=== PATIENT | female | born 1935 | race Caucasian/White ===

== ENCOUNTER → 2017-02-10 | Outpatient (CLI) | payer MEDICARE, BC | END | disposition home or self-care (01) | LOC: GMAJ 12:12 | PROVIDERS: ATTEND Family Medicine | DX: I10 Essential (primary) hypertension (principal) ==

== ENCOUNTER 2017-02-17 05:49 | Day surgery (SDC) | payer MEDICARE, BC ==
--- NOTE | 2017-02-12 09:02 | HP ---
CHIEF COMPLAINT: Right knee pain. HISTORY OF PRESENT ILLNESS: Ms. Kearney is an 81-year-old female with a history of pain in her right knee. She has had this going on for going on a year. Ms. Kearney had no trauma related to this, denies any radiation of pain and denies any neurologic symptoms. She does have history of arthritis and she will probably benefit in the long run from total knee arthroplasty. Her current social situation prevents her for undergoing such a procedure. Because of that, she has requested operative intervention, but wishes to undergo knee arthroscopy. After discussing the risks, benefits and alternatives to operative therapy, the patient has given informed consent for knee arthroscopy. PAST SURGICAL HISTORY: 1. Cardiac stent placement. 2. Cholecystectomy. MEDICATIONS: 1. Lisinopril. 2. Levothyroxine. 3. Atorvastatin. ALLERGIES: NO KNOWN DRUG ALLERGIES. CODE STATUS: DNR. IMMUNIZATIONS: Up to date. SOCIAL HISTORY: The patient does not drink, smoke or use any illicit drugs. FAMILY HISTORY: None pertinent to today's complaint. REVIEW OF SYSTEMS: Negative except as indicated in the History of Present Illness. PHYSICAL EXAMINATION: VITAL SIGNS: Blood pressure 155/124. Pulse 61. Height 5'5". Weight 127. MENTAL STATUS: The patient is awake, alert, and is able to give a good history and participate in the physical. The patient is oriented to person, place and time. SKIN: Normal tone and turgor. HEENT: Normocephalic, atraumatic. Pupils equal, round and reactive. Mucosal membranes are moist. NECK: Normal range of motion. No thyromegaly, no lymphadenopathy. CHEST: Normal respiratory excursion. CARDIAC: Regular rate and rhythm. No murmurs, rubs or gallops. MUSCULOSKELETAL: She is very tender to palpation along the medial aspect of the knee and has mild tenderness laterally. She has minimal tenderness with patellar mobilization. She has crepitus throughout her range of motion and has range of motion from full extension to about 130 degrees. She has no varus/ valgus or anterior/posterior laxity. Strength is 5/5 in the extremity. Sensation is intact. There is no effusion and there is no malalignment on gross clinical exam. ASSESSMENT: 1. Arthritis. PLAN: We have talked about the efficacy of knee arthroscopy with arthritis and although she may get some benefit, the effects might not be lasting. She understands that and she is willing to undergo procedure for any relief that she can get. We have discussed the risks, benefits, and alternatives to that and the patient has given informed consent. [facility][id number] [facility]
[2017-02-17] MEDS ORDERED: LACTATED RINGERS 1,000 ML ONE (05:58)
[2017-02-17] MEDS ORDERED: SODIUM CHL 0.9% 50ML MIN-BAG+ 50 ML IVPB ONE (05:58)
[2017-02-17] MEDS ORDERED: ceFAZolin SODIUM 1 GM VIAL ONE ×2 (05:59→06:39)
[2017-02-17] MEDS ORDERED: LIDOCAINE 1% W/ EPINEPHRINE 20 ML VIAL INJ ONE (06:39)
[2017-02-17] MEDS ORDERED: fentaNYL CITRATE INJ 50 MCG/ML AMP ONE (06:49)
--- NOTE | 2017-02-17 08:52 | OP ---
DATE OF PROCEDURE: 02/17/17 PREOPERATIVE DIAGNOSIS: 1. Right knee osteoarthritis. 2. Right knee meniscus tear. 3. Right knee pain. POSTOPERATIVE DIAGNOSIS: 1. Right knee osteoarthritis. 2. Right knee meniscus tear. 3. Right knee pain. 4. Loose body within the anterior compartment measuring approximately 5 mm. PROCEDURE: 1. Chondroplasty. 2. Partial meniscectomy. SURGEON: Christopher Reynolds MD. ENGINE TESTING SUPERVISOR: Luis Felipe Hui CST, SA-C. ANESTHESIA: General. COMPLICATIONS: None. FINDINGS: 1. Advanced arthrosis of the medial compartment. 2. Tearing of the medial meniscus. 3. Loose body within the anterior compartment measuring approximately 5 mm. 4. Normal anterior cruciate ligament and normal posterior cruciate ligament. 5. Grade 3 changes in the chondral surfaces of the lateral compartment. 6. Normal lateral gutter. 7. Normal suprapatellar pouch. 8. Grade 4 changes of the patellofemoral joint. 9. Normal medial gutter. INDICATION: Ms. Kearney is an 81-year-old female with a history of pain in the knee. She has had conservative measures and unfortunately failed to gain relief. She and I have talked about other options and she requested operative intervention. We talked about total knee arthroplasty versus surgical intervention using arthroscopy. She requested arthroscopy and we discussed the possible durability or lack thereof of the results and the variable results in the knee with arthritis. After discussing the risks, benefits and alternatives to that, the patient has given informed consent for that. PROCEDURE: The patient was brought to the Operating Room and placed in supine position. General anesthesia was induced and the patient's leg was sterilely prepped and draped. Following prepping and draping, standard anteromedial and anterolateral portals were established. Diagnostic arthroscopy was carried out with the above findings. After diagnostic arthroscopy was performed, a 3.5 mm full radius shaver was used to debride both the chondral surface at the femur and the meniscus. Following that, both were thoroughly probed to ensure complete stability of the remaining chondral surface and meniscal remnant. The knee was very thoroughly irrigated and the loose body in the anterior compartment was removed using a grasper. The knee was again thoroughly irrigated and drained. Following draining of the knee, the wounds were closed with Nylon suture. Sterile dressings were placed. The patient was awoken from anesthesia and taken to Recovery. POSTOPERATIVE INSTRUCTIONS: The patient will be partial weightbearing until followup with me in 2 days. We will discuss further intervention and need thereof should we not have durable results with her knee arthroscopy. #[id number] [facility]
[2017-02-17 09:48] VITALS: BP 118/82; TEMP 98.4; O2SAT 96
[2017-02-17] MEDS ORDERED: PROPOFOL 200 MG/20 ML VIAL IV ONE (12:00)
[2017-02-17] MEDS ORDERED: raNITIdine HCL INJ 25 MG/ML VIAL IV ONE (12:00)
[2017-02-17] MEDS ORDERED: LIDOCAINE 1% 10 ML VIAL INJ ONE (12:00)
[2017-02-17] MEDS ORDERED: DEXAMETHASONE INJ 10 MG/ML VIAL IV ONE (12:00)
[2017-02-17] MEDS ORDERED: GLYCOPYRROLATE 0.2 MG/ML VIAL IV ONE (12:00)
[2017-02-17] MEDS ORDERED: ePHEDrine SULF 50 MG/ML IV ONE (12:00)
== END 2017-02-17 09:30 | disposition home or self-care (01) ==
LOC: AMB 05:49
PROVIDERS: ATTEND Orthopaedic Surgery
DX: M17.11 Unilateral primary osteoarthritis, right knee (principal); S83.241A Other tear of medial meniscus, current injury, right knee, initial encounter; R00.1 Bradycardia, unspecified; I10 Essential (primary) hypertension; J44.9 Chronic obstructive pulmonary disease, unspecified; F17.200 Nicotine dependence, unspecified, uncomplicated; Z95.5 Presence of coronary angioplasty implant and graft; Z79.899 Other long term (current) drug therapy
CPT/HCPCS: 01400; 29881; 87070; J0690; J1100; J2780; J3010; J3490; J7050; J7120

== ENCOUNTER 2017-02-27 20:24 | Emergency (ER) | payer MEDICARE, BC ==
--- NOTE | 2017-02-27 20:53 | ED.PDOC ---
History of Present Illness - General Chief Complaint: Neck Injury/Pain Stated Complaint: Neck pain causing MCKEON and Bilateral shoulder pain Time Seen by Provider: 02/27/17 20:31 Source: patient, RN notes reviewed, Vital Signs reviewed Exam Limitations: no limitations - History of Present Illness Initial Comments: Earlier this afternoon patient developed neck pain that spread over her whole head and across her shoulders. She was not sure what was going on so she took some of her nitroglycerin which helped slightly. The pain continued through the evening and she got concerned so she came to the ER. No chest pain, SOB, nausea or diaphoresis. No numbness or tingling. Timing/Duration: 4-6 hours Severity: moderate Improving Factors: nothing Worsening Factors: movement Associated Symptoms: headaches Allergies/Adverse Reactions: Allergies NO KNOWN ALLERGY Allergy (Verified 02/27/17 20:57) Home Medications: Ambulatory Orders Aspirin [Aspirin 81] 81 mg PO DAILY 01/23/14 Levothyroxine Sodium [Tirosint] 50 mcg PO DAILY 01/23/14 Lisinopril 20 mg PO DAILY 01/23/14 Atorvastatin Calcium [Lipitor] 40 mg PO DAILY 02/12/17 HYDROcodone 5MG/APAP 325MG [[place] 5/325] 1 ea PO .Q4H PRN #30 tab 02/17/17 Cyclobenzaprine HCl [Flexeril] 5 mg PO Q8HRS PRN #12 tab 02/27/17 Review of Systems - Review of Systems Constitutional: States: no symptoms reported EENTM: States: no symptoms reported Respiratory: States: no symptoms reported. Denies: short of breath Cardiology: States: no symptoms reported. Denies: chest pain Gastrointestinal/Abdominal: States: no symptoms reported. Denies: nausea Musculoskeletal: States: see HPI, neck pain Skin: States: no symptoms reported Neurological: States: headache Endocrine: States: no symptoms reported Past Medical History (General) - Patient Medical History Hx Congestive Heart Failure: No Hx Diabetes: No Family Medical History - Family History Mother Family History: Unknown Physical Exam - Physical Exam General Appearance: Alert, Comfortable, No apparent distress, Well Developed, Well Groomed, Well Hydrated, Well Nourished Ears, Nose, Throat: hearing grossly normal Neck: full range of motion, supple, tender midline Respiratory: chest non-tender, lungs clear, normal breath sounds, no respiratory distress, no accessory muscle use Cardiovascular/Chest: normal peripheral pulses, regular rate, rhythm, no edema, no gallop, no JVD, no murmur Peripheral Pulses: radial,right: 2+, radial,left: 2+, dorsalis pedis,right: 2+, dorsalis pedis,left: 2+ Gastrointestinal/Abdominal: normal bowel sounds, non tender, soft, no organomegaly, no pulsatile mass Extremity: normal range of motion, normal inspection, other - Tenderness across posterior upper shoulder muscles. Neurologic: no motor/sensory deficits, alert, normal mood/affect, oriented x 3 Skin Exam: normal color, warm/dry Comments: Vital Signs - 24 hr 02/27/17 02/27/17 02/27/17 20:49 20:50 21:26 Temperature 97.8 F 97.8 F Pulse Rate 76 Pulse Rate [ 71 74 76 left] Respiratory 18 18 Rate Blood Pressure 151/74 95/67 [left] O2 Sat by Pulse 96 97 Oximetry 02/27/17 02/27/17 22:26 23:22 Temperature Pulse Rate 70 66 Pulse Rate [ 70 66 left] Respiratory 18 18 Rate Blood Pressure 171/73 153/67 [left] O2 Sat by Pulse 98 99 Oximetry Progress - Progress Progress: 02/27/17 23:32 CK-MB is still elevated but lower than before. Unlikely pain is cardiac in nature. Most likely is due to her neck which shows a lot of disc space narrowing. Discussed with patient. 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 - Results/Orders Results/Orders: Laboratory Tests 02/27/17 02/27/17 20:45 23:00 WBC 9.2 RBC 4.28 Hgb 13.1 Hct 38.8 MCV 90.8 MCH 30.6 MCHC 33.7 RDW 13.0 Plt Count 292 MPV 9.5 Absolute Neuts (auto) 7.50 H Absolute Lymphs (auto) 1.90 Absolute Monos (auto) 0.70 Absolute Eos (auto) 0.20 Absolute Basos (auto) 0.10 Neutrophils % 72.5 Lymphocytes % 18.0 L Monocytes % 7.0 Eosinophils % 1.5 Basophils % 1.0 Sodium 134 L Potassium 4.1 Chloride 101 Carbon Dioxide 27 Anion Gap 10.1 L BUN 13 Creatinine 0.80 BUN/Creatinine Ratio 16.3 Random Glucose 118 H Serum Osmolality 269.4 L Calcium 9.2 Total Bilirubin 0.4 AST 23 ALT 19 Alkaline Phosphatase 81 Creatine Kinase 240 H* 225 H* CK-MB (CK-2) 8.0 H* 7.3 H* CK-MB (CK-2) % 3.33 3.24 Troponin I < 0.02 < 0.02 Serum Total Protein 7.5 Albumin 4.2 Globulin 3.3 Albumin/Globulin Ratio 1.3 - EKG/XRAY/CT EKG: Sinus, no ST T wave changes Comments: Rate 83 Departure - Departure Clinical Impression: Neck pain, bilateral, Elevated CK-MB level Tension type headache Qualifiers: Headache chronicity pattern: acute headache Intractability: not intractable Qualifier Code: (G44.209) Tension-type headache, unspecified, not intractable Time of Disposition: 23:35 Disposition: Discharge to Home or Self Care Condition: Good Instructions: DI for Neck Pain Diet: resume usual diet Activity: increase activity as tolerated Prescriptions: Cyclobenzaprine HCl [Flexeril] 5 mg PO Q8HRS PRN #12 tab PRN Reason: Muscle Spasms Home Medications: Ambulatory Orders Aspirin [Aspirin 81] 81 mg PO DAILY 01/23/14 Levothyroxine Sodium [Tirosint] 50 mcg PO DAILY 01/23/14 Lisinopril 20 mg PO DAILY 01/23/14 Atorvastatin Calcium [Lipitor] 40 mg PO DAILY 02/12/17 HYDROcodone 5MG/APAP 325MG [[place] 5/325] 1 ea PO .Q4H PRN #30 tab 02/17/17 Cyclobenzaprine HCl [Flexeril] 5 mg PO Q8HRS PRN #12 tab 02/27/17 Additional Instructions: OTC Ibuprofen as needed.
[2017-02-27 20:58] VITALS: TEMP 97.8
--- NOTE | 2017-02-27 22:10 | RAD ---
Procedure: XR CERVICAL SPINE 2 - 3 VIEWS Exam Date: 02/27/2017 Ordering Provider: Ct Jung Clinical Indication: Shoulder/neck pain Comparison: 05/06/2012 MR cervical spine Findings: There is no acute fracture or subluxation. Multilevel intervertebral disc space narrowing and endplate osteophyte formation. Slight reversal of the normal cervical lordosis. There are no lytic or sclerotic lesions. The prevertebral tissues are normal. Impression: 1. No acute fracture or subluxation of the cervical spine. 2. Multilevel intervertebral disc space narrowing and endplate osteophyte formation with slight reversal of the normal cervical lordosis. Electronically signed by: Nishant Kearney MD 02/27/2017 10:09 PM CDT
--- NOTE | 2017-02-27 22:12 | RAD ---
Procedure: XR CHEST 2 VIEWS Exam Date: 02/27/2017 Ordering Provider: Ct Jung Clinical Indication: Shoulder/neck pain Comparison: 03/22/2012 Findings: The heart is not enlarged. Pulmonary vasculature is normal. Mediastinal contour is normal. Aortic contour is normal. There is no focal lung consolidation. No pleural effusion. There is no pneumothorax. There is no acute bony or soft tissue abnormality. Impression: 1. No acute abnormalities in the chest. Electronically signed by: Nishant Kearney MD 02/27/2017 10:10 PM CDT
[2017-02-27 23:23] VITALS: BP 153/67; O2SAT 99
== END 2017-02-27 23:50 | disposition home or self-care (01) ==
LOC: ER 20:24
DX: M54.2 Cervicalgia (principal); G44.209 Tension-type headache, unspecified, not intractable; R79.89 Other specified abnormal findings of blood chemistry; Z79.899 Other long term (current) drug therapy; Z79.82 Long term (current) use of aspirin

== ENCOUNTER → 2017-03-09 | Outpatient (CLI) | payer MEDICARE, BC ==
--- NOTE | 2017-03-09 11:01 | MRI ---
EXAM DESCRIPTION: Cervical Spine CLINICAL HISTORY: CERVICALGIA COMPARISON: May 06, 2012 TECHNIQUE: MRI of the cervical spine is performed according to our usual protocol. FINDINGS: Reversal of the normal cervical lordosis with multilevel advanced disc degenerative disease at C5-6 and C6-7 and diffuse disc desiccation is present. This pattern is stable and little changed from prior study. The foramen magnum and craniocervical junction is normal and no intradural or intramedullary abnormality or abnormal cord signal is noted. Prevertebral soft tissues are normal and marrow signal except for degenerative change is preserved without evidence of metastatic or destructive process. C2-3: Disc desiccation and endplate irregularity with mild annular bulge and mild narrowing of each C2-3 neural foramen. No stenosis or lateralizing herniation. C3-4: Disc desiccation with moderate central disc protrusion and moderate AP diameter canal stenosis to approximately 6 mm abutting the anterior cord with right greater than left facet disease and foraminal encroachment C4-5: Disc desiccation with broad-based annular bulge and milder AP diameter canal stenosis estimated at seven or 8 mm with right greater than left foraminal encroachment and facet disease. C5-6: Advanced disc desiccation and disc narrowing with broad-based disc bulge and superimposed central disc protrusion and significant AP diameter canal stenosis estimated at 5 to 6 mm with some progression from prior study. Bilateral foraminal narrowing on a multifactorial basis. C6-7: Severe disc desiccation and narrowing with broad-based annular bulge, slightly less severe stenosis centrally at six or 7 mm with bilateral foraminal narrowing from annular bulge and milder facet disease C7-T1: the disc is well hydrated. There is no loss of height. There is no bulging. The facets are unremarkable with no significant hypertrophy. There is no stenosis or impingement. IMPRESSION: 1. Markedly abnormal examination with multilevel diffuse disc desiccation and more severe disc degeneration at C5-6 and C6-7. 2. At least some progression of central stenosis which is most severe at C3-4 and C5-6 and milder at C4-5 and C6-7. 3. Multilevel annular bulges with additional central disc protrusions at C3-4 and C5-6. 4. Predominantly right foraminal narrowing at C3-4 and C4-5 and more symmetric changes below this level in the lower cervical spine. Electronically signed by: Robby Dove MD 03/09/2017 11:00 AM CDT
== END | disposition home or self-care (01) ==
LOC: MRI 08:00
PROVIDERS: ATTEND Nurse Practitioner Acute Care
DX: M47.892 Other spondylosis, cervical region (principal)

== ENCOUNTER → 2017-07-13 | Outpatient (CLI) | payer MEDICARE, BC | END | disposition home or self-care (01) | LOC: YCFC.O 08:39 | PROVIDERS: ATTEND Anesthesiology Pain Medicine | DX: Z79.891 Long term (current) use of opiate analgesic (principal) ==

== ENCOUNTER → 2017-07-23 | Outpatient (CLI) | payer MEDICARE, BC | END | disposition home or self-care (01) | LOC: MRI 14:26 | PROVIDERS: ATTEND Anesthesiology Pain Medicine | DX: M47.817 Spondylosis without myelopathy or radiculopathy, lumbosacral region (principal) ==

== ENCOUNTER 2017-08-17 05:48 | Day surgery (SDC) | payer MEDICARE ==
[2017-08-17] MEDS ORDERED: SODIUM BICARBONATE VIAL 50 MEQ/50 ML VIAL ONE (09:23)
[2017-08-17] MEDS ORDERED: LIDOCAINE 1% MPF 5 ML VIAL ONE (09:24)
[2017-08-17] MEDS ORDERED: SODIUM CHLORIDE 0.9% 10 ML VIAL ONE (09:24)
[2017-08-17] MEDS ORDERED: methylPREDNISolone ACETATE 80 MG/ML VIAL ONE (09:24)
[2017-08-17 13:51] VITALS: BP 171/71; TEMP 97.8; O2SAT 100
== END 2017-08-17 12:45 | disposition home or self-care (01) ==
LOC: AMB 05:48
PROVIDERS: ATTEND Anesthesiology Pain Medicine
DX: M48.02 Spinal stenosis, cervical region (principal); M51.16 Intervertebral disc disorders with radiculopathy, lumbar region; Z79.82 Long term (current) use of aspirin; Z79.899 Other long term (current) drug therapy
CPT/HCPCS: 62323; 76000; J1030

== ENCOUNTER 2017-09-14 05:00 | Day surgery (SDC) | payer MEDICARE ==
[2017-09-14] MEDS ORDERED: LIDOCAINE 1% MPF 5 ML VIAL ONE (10:54)
[2017-09-14] MEDS ORDERED: SODIUM CHLORIDE 0.9% 10 ML VIAL ONE (10:54)
[2017-09-14] MEDS ORDERED: SODIUM BICARBONATE VIAL 50 MEQ/50 ML VIAL ONE (10:54)
[2017-09-14] MEDS ORDERED: methylPREDNISolone ACETATE 80 MG/ML VIAL ONE (10:54)
[2017-09-14 13:17] VITALS: BP 164/77; TEMP 98.2; O2SAT 98
== END 2017-09-14 13:05 | disposition home or self-care (01) ==
LOC: AMB 05:00
PROVIDERS: ATTEND Anesthesiology Pain Medicine
DX: M50.10 Cervical disc disorder with radiculopathy, unspecified cervical region (principal); M54.2 Cervicalgia; M48.02 Spinal stenosis, cervical region; M48.061 Spinal stenosis, lumbar region without neurogenic claudication; M17.0 Bilateral primary osteoarthritis of knee; Z79.82 Long term (current) use of aspirin; Z79.899 Other long term (current) drug therapy
CPT/HCPCS: 62321; 76000; J1030

== ENCOUNTER → 2018-03-25 | Outpatient (CLI) | payer MEDICARE | LOC: LAB.O 11:39 | PROVIDERS: ATTEND Family Medicine | DX: I10 Essential (primary) hypertension (principal); E78.2 Mixed hyperlipidemia; E03.9 Hypothyroidism, unspecified ==